=== PATIENT | female | born 1995 | race Caucasian/White ===

== ENCOUNTER 2019-02-06 11:45 | Emergency (ER) | payer BC, MEDICAID ==
[~2019-02-06] VITALS: Ht 157.5 cm; Wt 100.0 kg
--- NOTE | 2019-02-06 13:00 | NUR ---
PT CAME TO BED 22 AND FAMILY IS AT BEDSIDE. PT IN WHEELCHAIR AND NOW LAYING IN BED.
--- NOTE | 2019-02-06 13:31 | NUR ---
PTS MOM TOOK PT TO BATHROOM AND GOT URINE SAMPLE. PT NOW BACK TO BED FAMILY AT BEDSIDE
--- NOTE | 2019-02-06 13:40 | NUR ---
PTS MOM IS AT BEDSIDE AND PT IS IN BED. PT IS NOW IN GREEN SCRUBS
[2019-02-06 13:46] LABS: CLARITY,URINE SLIGHTLY CLOUDY (Clear); COLOR,URINE STRAW (Yellow); GLUCOSE, URINE NEGATIVE (Neg); KETONES,URINE NEGATIVE (Neg); LEUKOCYTE ESTERASE ,URINE NEGATIVE (Neg); NITRITES, URINE NEGATIVE (Neg); OCCULT BLOOD,URINE NEGATIVE (Neg); PROTEIN,URINE NEGATIVE (Neg); URINE HCG NEGATIVE (NEG); UROBILINOGEN,URINE 0.2 E.U/dL (0.2-1.0)
[2019-02-06 13:47] LABS: UA COLLECTION TYPE CLN CATCH MIDSTREAM
[2019-02-06 13:52] LABS: MUCUS STRANDS FEW /LPF (Neg); SQUAMOUS EPITHELIAL CELL,UR MANY /LPF (FEW)
[2019-02-06 13:53] LABS: BACTERIA,URINE 1+ /HPF (Neg); RBC,URINE 0-2 /HPF (0-2); WBC,URINE 0-4 /HPF (0-4)
[2019-02-06] MEDS ORDERED: LORazepam 2 mg/ml vial IM ONE (14:00)
--- NOTE | 2019-02-06 14:00 | NUR ---
Patient presents with rambling pressured speech. Anxious about being in the hospital and unable to control her anxious thoughts. Dr. Sharma consulted. Order given for Ativan 2 mg. IM. Ativan administered as ordered without event.
[2019-02-06 14:12] LABS: URINE AMPHETAMINE SCREEN NEGATIVE (Neg); URINE BARBITUATE SCREEN NEGATIVE (Neg); URINE BENZODIAZEPINES SCREEN NEGATIVE (Neg); URINE CANNABINOID SCREEN NEGATIVE (Neg); URINE COCAINE SCREEN NEGATIVE (Neg); URINE METHADONE SCREEN NEGATIVE (Neg); URINE OPIATE SCREEN NEGATIVE (Neg); URINE PHENCYCLIDINE SCREEN NEGATIVE (Neg)
--- NOTE | 2019-02-06 15:00 | NUR ---
Behavior and speech have slowed down after medication administration. Mother at bedside and assists patient in and out of bed to use the bathroom. Mother states "the minute she drinks something it runs right through her and she has to use the bathroom."
[2019-02-06 15:03] LABS: BASOPHILS # (AUTO) 0.1 X10'3 (0-0.2); BASOPHILS % (AUTO) 1.2 % (0-1); EOSINOPHILS # (AUTO) 0.1 X10'3 (0-0.9); HEMATOCRIT 40.9 % (35.0-45.0); HEMOGLOBIN 13.8 g/dl (12.0-16.0); LYMPHOCYTES # (AUTO) 2.1 X10'3 (1.1-4.8); LYMPHOCYTES % (AUTO) 24.5 % (21-51); MEAN CORPUSCULAR HEMOGLOBIN 30.4 PG (27.0-31.0); MEAN CORPUSCULAR HGB CONC 33.6 g/dL (33.0-36.5); MEAN CORPUSCULAR VOLUME 90.4 FL (78-98); MONOCYTES # (AUTO) 0.7 X10'3 (0-0.9); MONOCYTES % (AUTO) 8.1 % (2-12); NEUTROPHILS # (AUTO) 5.7 X10'3 (1.8-7.7); NEUTROPHILS % (AUTO) 65.2 % (42-75); PLATELET COUNT 299 X10'3 (140-440); RED BLOOD COUNT 4.53 X10'6 (4.20-5.60); RED CELL DISTRIBUTION WIDTH 12.7 % (11.5-14.5); WHITE BLOOD COUNT 8.7 X10'3 (4.5-11.0)
[2019-02-06 15:18] LABS: ALANINE AMINOTRANSFERASE 38 U/L (12-78); ALBUMIN 3.7 G/DL (3.4-5.0); ALKALINE PHOSPHATASE 96 IU/L (46-116); ANION GAP 9 (8-16); ASPARTATE AMINO TRANSFERASE 20 U/L (10-37); BILIRUBIN,TOTAL 0.2 MG/DL (0.1-1.0); CALCIUM 8.4 MG/DL (8.5-10.1); CHLORIDE 106 MMOL/L (99-107); GLUCOSE 129 MG/DL (70-104); POTASSIUM 3.5 MMOL/L (3.5-5.1); SODIUM 140 MMOL/L (135-145); TOTAL CARBON DIOXIDE 25.5 MMOL/L (24-32); TOTAL PROTEIN 7.4 G/DL (6.4-8.2)
[2019-02-06 15:26] LABS: ETHANOL < 0.010 GM/DL (0.0-0.010)
[2019-02-06 15:32] LABS: BLOOD UREA NITROGEN 9 MG/DL (7-18); BUN/CREATININE RATIO 14.5 (6.6-38.0); CREATININE 0.62 MG/DL (0.40-0.90); eGFR > 90 ML/MIN
--- NOTE | 2019-02-06 16:00 | NUR ---
Mother continues to sit at bedside assisting patient with her needs and keeping her comfortable.
--- NOTE | 2019-02-06 19:22 | NUR ---
Per patients mother this patient has been expressing recent agression, anger, outburst, she has also been striking out at staff that assist her at her apartment. Patient was given Ativan by injection earlier per the mother. At this time patient exhibits a calm affect. She is awak and oriented to her normal baseline which doesn't always include knowledge of dates, etc. History has been obtained from this patients mother.
--- NOTE | 2019-02-06 19:26 | NUR ---
[facility] worker is evaluating patient at bedside.
--- NOTE | 2019-02-06 20:00 | NUR ---
PT was evaluated by [facility] and does not meet criteria for a 5150, mother and sister are at bedside and also talk with [facility] and [facility] to take [facility] private vehicle to her place of residence. PT does not have any of her own clothing, pt given clothing that she picked out from the clothing closet.
[2019-02-06] MEDS ORDERED: LORazepam 1 MG tablet PO ONE (20:15)
--- NOTE | 2019-02-06 20:50 | NUR ---
PT signed discharge paperwork, paperwork explained to patient and mother, pt verbalized understanding. Pt was given 1mg ativan PO for anxiety. PT recieved her belongings back, and was escorted out by staff in stable condition.
[2019-02-06 22:03] VITALS: BP 150/91
== END 2019-02-06 20:50 | disposition home or self-care (01) ==
LOC: ER 11:46
DX: R44.0 Auditory hallucinations (principal); F31.9 Bipolar disorder, unspecified; Z56.0 Unemployment, unspecified
CPT/HCPCS: 36415; 80053; 80305; 80320; 81001; 81025; 84443; 85025; 96372; 99284; J2060